=== PATIENT | female | born 1975 | race African-American/Black ===

== ENCOUNTER 2019-05-19 17:59 | Observation (INO) ==
[2019-05-19] MEDS ORDERED: KETOROLAC 30 MG/1 ML VIAL IV STA (19:04)
[2019-05-19] MEDS ORDERED: SODIUM CHLORIDE 0.9% 1,000 ML IV STA (19:04)
[2019-05-19 19:19] LABS: Basophils # 0.1 10*3/uL (0.0-0.2); Basophils % 0.5 % (0.0-0.8); Eosinophils # 0.3 10*3/uL (0.0-0.87); Eosinophils % 2.6 % (0.00-10.9); Hematocrit 43.9 VOL% (35.7-47.0); Hemoglobin 13.5 GM/DL (12.0-16.0); Immature Granulocytes % 0.3 %; Immature Granulocytes Absolute 0.03 #; Lymphocytes # 3.4 10*3/uL (1.4-4.0); Lymphocytes % 33.5 % (21.3-54.2); Mean Corpuscular HGB Conc 30.8 GM/DL (32-36); Mean Corpuscular Volume 86.9 FL (87-102); Mean Platelet Volume 9.7 FL (9.6-12.0); Monocytes % 5.5 % (1.7-12.7); Neutrophils % 57.6 % (38.7-73.9); Platelet Count 329 T/CUMM (130-400); Red Blood Count 5.05 MC/CUMM (3.8-5.5); Red Cell Distribution Width 13.7 % (9.3-17.3); White Blood Count 10.3 T/CUMM (4-12)
[2019-05-19 19:45] LABS: Alanine Aminotransferase 43 U/L (13-56); Albumin 3.6 G/DL (3.4-5.0); Alkaline Phosphatase 114 U/L (45-117); Aspartate Amino Transferase 33 U/L (0-37); Bilirubin,Total < 0.39 MG/DL (0.2-1.0); Blood Urea Nitrogen 14 MG/DL (7-18); Calcium 9.8 MG/DL (8.5-10.1); Glucose 265 MG/DL (74-106); Osmolality,Calculated 277.2 MOS/KG (273-304); Total Protein 8.4 G/DL (6.4-8.3)
[2019-05-19 20:08] LABS: Apearance,Urine CLEAR (Clear); Bilirubin,Urine Negative (Negative); Blood, Urine Negative (Negative); Glucose,Urine (UA) >=500 mg/dL (Negative); Ketones,Urine Negative (Negative); Nitrite,Urine Negative (Negative); Protein,Urine Negative; RBC,Urine <1 /HPF (0-4); Squamous Epithelial Cell,Urine Occasional /HPF (0-10); Urine Color Straw (Yellow); Urine Specific Gravity 1.042 (1.001-1.035); Urine Urobilinogen < 2.0 EU/DL (0.2-1.0); WBC,Urine 1 /HPF (0-6)
[2019-05-19] MEDS ORDERED: oxyCODONE/ACETAMINOPHEN 5-325 MG TABLET PO STA (20:43)
[2019-05-19] MEDS ORDERED: HYDROmorphone 2 MG/1 ML VIAL IV STA (20:51)
[2019-05-19] MEDS ORDERED: ONDANSETRON 4 MG/2 ML VIAL IV STA (20:52)
[2019-05-20] MEDS ORDERED: SODIUM CHLORIDE 0.9% 1,000 ML IV STA (00:36)
[2019-05-20] MEDS ORDERED: ONDANSETRON 4 MG/2 ML VIAL IV PRN (00:39)
[2019-05-20] MEDS: DEXTROSE 5% NACL 0.9% 1,000 ML IV SCH ×4 (03:18→19:54)
[2019-05-20] MEDS: HYDROmorphone 2 MG TABLET PO PRN ×2 (03:28→19:59)
[2019-05-20] MEDS: FAMOTIDINE 20 MG/2 ML VIAL IV SCH ×2 (09:39→20:44)
[2019-05-20] MEDS ORDERED: DEXTROSE 50% 25 GM/50 ML VIAL IV PRN (15:29)
[2019-05-20] MEDS ORDERED: GLUCAGON 1 MG VIAL IM PRN (15:29)
[2019-05-20] MEDS ORDERED: AMITRIPTYLINE 75 MG TABLET PO SCH (21:00)
[2019-05-20] MEDS ORDERED: INSULIN GLARGINE 100 UNIT/ML SUBCUT SCH (21:00)
[2019-05-20] MEDS ORDERED: ROSUVASTATIN 20 MG TABLET PO SCH (21:00)
[2019-05-20] MEDS: FLUTICASONE PROPIONATE INH SCH (21:34)
[2019-05-21] MEDS: DEXTROSE 5% NACL 0.9% 1,000 ML IV SCH ×2 (03:35→09:00)
[2019-05-21] MEDS ORDERED: DOCUSATE SODIUM 100 MG CAPSULE PO SCH (09:00)
[2019-05-21] MEDS ORDERED: POLYETHYLENE GLYCOL POWDER 17 GM PACK PO SCH (09:00)
[2019-05-21] MEDS ORDERED: NON-FORMULARY MEDICATION (Empagliflozin [Jardiance] 25 MG) PO SCH (09:00)
[2019-05-21] MEDS ORDERED: hydroCHLOROthiazide 25 MG TABLET PO SCH (09:00)
[2019-05-21] MEDS ORDERED: LISINOPRIL/HCTZ 10-12.5 MG TABLET PO SCH (09:00)
[2019-05-21] MEDS: FAMOTIDINE 20 MG/2 ML VIAL IV SCH (10:44)
[2019-05-21] MEDS: FLUTICASONE PROPIONATE INH SCH (10:44)
[2019-05-21] MEDS ORDERED: SERTRALINE 25 MG TABLET PO SCH (12:00)
[2019-05-21 12:43] VITALS: BP 137/97
[2019-05-21] MEDS: HYDROmorphone 2 MG TABLET PO PRN (12:45)
[2019-05-21] MEDS ORDERED: FLUCONAZOLE 150 MG TABLET PO SCH (12:53)
[2019-05-21] MEDS ORDERED: INSULIN REGULAR 100 UNIT/ML SUBCUT SCH (16:30)
== END 2019-05-21 16:05 | disposition home or self-care (01) ==
LOC: N.ED 17:59 → N.EDINP 17:59 → N.ED 21:11 → N.3E 05-20 01:33
PROVIDERS: ADMIT Family Medicine; ATTEND Family Medicine

== ENCOUNTER 2019-11-05 13:53 | Observation (INO) ==
[2019-11-05] MEDS ORDERED: SODIUM CHLORIDE 0.9% 1,000 ML IV STA (16:23)
[2019-11-05 17:03] LABS: Basophils # 0.1 10*3/uL (0.0-0.2); Basophils % 0.7 % (0.0-0.8); Eosinophils # 0.2 10*3/uL (0.0-0.87); Eosinophils % 1.6 % (0.00-10.9); Hematocrit 45.9 VOL% (35.7-47.0); Hemoglobin 14.4 GM/DL (12.0-16.0); Immature Granulocytes % 0.2 %; Immature Granulocytes Absolute 0.02 #; Lymphocytes # 4.1 10*3/uL (1.4-4.0); Lymphocytes % 45.1 % (21.3-54.2); Mean Corpuscular HGB Conc 31.4 GM/DL (32-36); Mean Corpuscular Volume 87.8 FL (87-102); Mean Platelet Volume 11.4 FL (9.6-12.0); Monocytes % 4.9 % (1.7-12.7); Neutrophils % 47.5 % (38.7-73.9); Platelet Count 355 T/CUMM (130-400); Red Blood Count 5.23 MC/CUMM (3.8-5.5); Red Cell Distribution Width 13.6 % (9.3-17.3); White Blood Count 9.1 T/CUMM (4-12)
[2019-11-05 17:09] LABS: INR 0.9; PT Patient Result 9.7 SECS (9.6-12.2); Partial Thromboplastin Time 26.2 SECS (20.8-36.0)
[2019-11-05 17:17] LABS: Alanine Aminotransferase 31 U/L (13-56); Albumin 3.5 G/DL (3.4-5.0); Alkaline Phosphatase 109 U/L (45-117); Aspartate Amino Transferase 22 U/L (0-37); Blood Urea Nitrogen 13 MG/DL (7-18); Calcium 9.3 MG/DL (8.5-10.1); Estimated Glom Filtration Rate 72 ML/MIN; Free T4 (Free Thyroxine) 1.07 NG/DL (0.76-1.46); Osmolality,Calculated 283.2 MOS/KG (273-304); Total Protein 8.2 G/DL (6.4-8.3); Troponin I < 0.015 NG/ML (0.00-0.045)
[2019-11-05 17:21] LABS: Glucose 625 MG/DL (74-106)
[2019-11-05] MEDS ORDERED: INSULIN REGULAR 100 UNIT/ML IV ONE (17:26)
[2019-11-05 18:03] LABS: Apearance,Urine CLEAR (Clear); Bacteria,Urine Occasional /HPF (Few); Bilirubin,Urine Negative (Negative); Blood, Urine Negative (Negative); Glucose,Urine (UA) >=500 mg/dL (Negative); Ketones,Urine Negative (Negative); Mucus,Urine Occasional /LPF (Occasional); Nitrite,Urine Negative (Negative); Protein,Urine Negative; RBC,Urine 1 /HPF (0-4); Squamous Epithelial Cell,Urine Occasional /HPF (0-10); Urine Color Straw (Yellow); Urine Specific Gravity 1.028 (1.001-1.035); Urine Urobilinogen < 2.0 EU/DL (0.2-1.0); WBC,Urine 1 /HPF (0-6)
[2019-11-05 18:04] LABS: Barbiturates Screen,Urine Negative (Negative); Benzodiazepines Screen,Urine Negative (Negative); Cannabinoid Screen,Urine Negative (Negative); Opiate Screen,Urine Negative (Negative); Phencyclidine Screen,Urine Negative (Negative)
[2019-11-05] MEDS ORDERED: ACETAMINOPHEN 325 MG TABLET PO PRN (18:13)
[2019-11-05] MEDS ORDERED: GLUCAGON 1 MG VIAL IM PRN ×3 (18:13→18:16)
[2019-11-05] MEDS ORDERED: DEXTROSE 50% 25 GM/50 ML VIAL IV PRN ×2 (18:13→18:15)
[2019-11-05] MEDS ORDERED: ONDANSETRON 4 MG/2 ML VIAL IV PRN (18:13)
[2019-11-05] MEDS ORDERED: DEXTROSE 10% 250 ML BAG IV PRN (18:16)
[2019-11-05] MEDS ORDERED: POLYETHYLENE GLYCOL POWDER 17 GM PACK PO PRN (19:35)
[2019-11-05] MEDS ORDERED: ASPIRIN ACETAMINOPHEN CAFFEINE PO PRN (19:35)
[2019-11-05] MEDS ORDERED: ONDANSETRON ODT 4 MG TABLET PO PRN (19:35)
[2019-11-05] MEDS ORDERED: DICYCLOMINE 20 MG TABLET PO PRN (19:35)
[2019-11-05] MEDS: SODIUM CHLORIDE 0.9% 1,000 ML IV SCH (20:15)
[2019-11-05] MEDS: INSULIN GLARGINE 100 UNIT/ML SUBCUT SCH (21:05)
[2019-11-05] MEDS: ROSUVASTATIN 20 MG TABLET PO SCH (21:07)
[2019-11-05] MEDS: ENOXAPARIN 40 MG/0.4 ML SYRINGE SUBCUT SCH (21:19)
[2019-11-05 21:23] LABS: Troponin I < 0.015 NG/ML (0.00-0.045)
[2019-11-05] MEDS: INSULIN REGULAR 100 UNIT/ML SUBCUT SCH ×3 (22:05→23:06)
[2019-11-05] MEDS: MORPHINE 4 MG/1 ML VIAL IV PRN (23:05)
[2019-11-06] MEDS: INSULIN REGULAR 100 UNIT/ML SUBCUT SCH ×8 (02:07→21:17)
[2019-11-06] MEDS: SODIUM CHLORIDE 0.9% 1,000 ML IV SCH ×3 (02:07→21:18)
[2019-11-06] MEDS: MORPHINE 4 MG/1 ML VIAL IV PRN (04:04)
[2019-11-06 05:34] LABS: Basophils % 0.6 % (0.0-0.8); Eosinophils # 0.2 10*3/uL (0.0-0.87); Eosinophils % 2.5 % (0.00-10.9); Hemoglobin 13.1 GM/DL (12.0-16.0); Immature Granulocytes % 0.1 %; Immature Granulocytes Absolute 0.01 #; Lymphocytes % 57.3 % (21.3-54.2); Mean Corpuscular HGB Conc 32.8 GM/DL (32-36); Mean Corpuscular Volume 87.9 FL (87-102); Mean Platelet Volume 10.3 FL (9.6-12.0); Monocytes % 5.8 % (1.7-12.7); Neutrophils % 33.7 % (38.7-73.9); Platelet Count 288 T/CUMM (130-400); Red Blood Count 4.55 MC/CUMM (3.8-5.5); Red Cell Distribution Width 13.4 % (9.3-17.3); White Blood Count 6.9 T/CUMM (4-12)
[2019-11-06 05:50] LABS: Troponin I < 0.015 NG/ML (0.00-0.045)
[2019-11-06 05:59] LABS: Albumin 2.9 G/DL (3.4-5.0); Calcium 8.1 MG/DL (8.5-10.1); Risk Ratio 5.82; Total Protein 7.1 G/DL (6.4-8.3)
[2019-11-06 06:43] LABS: Eosinophils 3 % (0-10); Lymphocytes 55 % (20-55); Segmented Neutrophils 40 % (50-85); Total Cells Counted 100
[2019-11-06 06:44] LABS: Hypochromasia 1+; Smudge Cells Few
[2019-11-06 06:45] LABS: Microcytosis Slight; Platelet Estimate Normal
[2019-11-06] MEDS ORDERED: POTASSIUM CHLORIDE 20 MEQ TABLET PO ONE (07:28)
[2019-11-06] MEDS: ASPIRIN EC 81 MG TABLET PO SCH (08:16)
[2019-11-06] MEDS: FENOFIBRATE 160 MG TABLET PO SCH (08:16)
[2019-11-06] MEDS: POLYCARBOPHIL 625 MG TABLET PO SCH (08:16)
[2019-11-06] MEDS: DULoxetine 30 MG CAPSULE PO SCH (08:16)
[2019-11-06] MEDS: PANTOPRAZOLE 40 MG TABLET PO SCH (08:17)
[2019-11-06] MEDS: SERTRALINE 25 MG TABLET PO SCH (08:17)
[2019-11-06] MEDS ORDERED: cefTRIAXone 1,000 MG VIAL IM SCH (10:00)
[2019-11-06] MEDS: NON-FORMULARY MEDICATION (Empagliflozin [Jardiance] 25 MG) PO SCH (10:01)
[2019-11-06] MEDS: DOCUSATE SODIUM 100 MG CAPSULE PO SCH (10:35)
[2019-11-06] MEDS: cefTRIAXone 1,000 MG in SYRINGE 1 EACH IV SCH (11:52)
[2019-11-06] MEDS ORDERED: FLUCONAZOLE 150 MG TABLET PO ONE (13:00)
[2019-11-06 14:07] LABS: HIV Antigen/Antibody Result Nonreactive (Nonreactive)
[2019-11-06 14:07] LABS: Hepatitis B Core IgM Quant 0.05 Index; Hepatitis B Surface Ag Quant < 0.10 Index; Hepatitis B Surface Ag Result Negative (Negative); Hepatitis C Virus Ab Quant 0.06 Index; Hepatitis C Virus Ab Result Negative (Negative)
[2019-11-06 15:05] LABS: RPR Confirm - Less than 1 yr NONREACTIVE (Nonreactive)
[2019-11-06] MEDS ORDERED: diphenhydrAMINE CAP 25 MG CAPSULE PO PRN (17:11)
[2019-11-06] MEDS: HYDROCORTISONE 1% OINT 28.35 GM TUBE TOP SCH (21:17)
[2019-11-06] MEDS: INSULIN GLARGINE 100 UNIT/ML SUBCUT SCH (21:20)
[2019-11-06] MEDS: ROSUVASTATIN 20 MG TABLET PO SCH (21:20)
[2019-11-06] MEDS: ENOXAPARIN 40 MG/0.4 ML SYRINGE SUBCUT SCH (21:21)
[2019-11-07] MEDS: MORPHINE 4 MG/1 ML VIAL IV PRN (06:48)
[2019-11-07] MEDS: INSULIN REGULAR 100 UNIT/ML SUBCUT SCH ×2 (08:34→13:37)
[2019-11-07] MEDS: ASPIRIN EC 81 MG TABLET PO SCH (08:34)
[2019-11-07] MEDS: POLYCARBOPHIL 625 MG TABLET PO SCH (08:35)
[2019-11-07] MEDS: DOCUSATE SODIUM 100 MG CAPSULE PO SCH (08:35)
[2019-11-07] MEDS: DULoxetine 30 MG CAPSULE PO SCH (08:35)
[2019-11-07] MEDS: PANTOPRAZOLE 40 MG TABLET PO SCH (08:35)
[2019-11-07] MEDS: FENOFIBRATE 160 MG TABLET PO SCH (08:35)
[2019-11-07] MEDS: SERTRALINE 25 MG TABLET PO SCH (08:35)
[2019-11-07] MEDS: HYDROCORTISONE 1% OINT 28.35 GM TUBE TOP SCH (08:36)
[2019-11-07] MEDS: NON-FORMULARY MEDICATION (Empagliflozin [Jardiance] 25 MG) PO SCH (09:08)
[2019-11-07] MEDS: cefTRIAXone 1,000 MG in SYRINGE 1 EACH IV SCH (11:02)
[2019-11-07] MEDS: SODIUM CHLORIDE 0.9% 1,000 ML IV SCH (11:02)
[2019-11-07 15:57] VITALS: BP 147/101
[2019-11-12] MEDS ORDERED: ERGOCALCIFEROL 50,000 UNIT CAPSULE PO SCH (09:00)
== END 2019-11-07 16:37 | disposition home or self-care (01) ==
LOC: N.EDINP 13:53 → N.ED 13:53 → SUATTDRO 18:11 → N.4E 19:30
PROVIDERS: ADMIT Family Medicine; ATTEND Family Medicine